=== PATIENT | male | born 2005 | race Caucasian/White ===

== ENCOUNTER 2024-03-21 17:23 | Emergency (ER) | payer OTHER, SELFPAY ==
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
[2024-03-21 17:28] VITALS: BP 132/72; PULSE 77; RESP 16; TEMP 36.9; O2SAT 98
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
--- NOTE | 2024-03-21 19:01 | PC.NURSE ---
assumed care. report received from Ronen BAEZ
--- NOTE | 2024-03-21 19:05 | PC.NURSE ---
patient is resting on stretcher. c collar is in place. call light in place. denies any needs
--- NOTE | 2024-03-21 19:22 | PC.NURSE ---
1899 report to delvin regan
[2024-03-21 19:23] VITALS: BP 130/70; PULSE 72; RESP 18; O2SAT 100
== END 2024-03-21 19:23 | disposition home or self-care (01) ==
PROVIDERS: Emergency Provider Emergency Medicine
DX: M25.561 Pain in right knee (principal); M25.512 Pain in left shoulder; M54.2 Cervicalgia; V59.88XA Occupant (driver) (passenger) of pick-up truck or van injured in other specified transport accidents, initial encounter
CPT/HCPCS: 72125; 73030; 73562; 99284; L0150

== ENCOUNTER 2024-07-13 16:20 | Outpatient (CLI) | payer OTHER, SELFPAY ==
[2024-07-13 17:26] LABS: HIV 1 P24 AG Negative (Negative); HIV 1/2 AB Negative (Negative)
[2024-07-14 08:34] LABS: Chlamydia trachomatis NOT DETECTED (NOT DETECTE); Neisseria gonorrhoeae PCR NOT DETECTED (NOT DETECTE)
[2024-07-15 07:28] LABS: Hepatitis C Virus Antibody NON-REACTIVE (NON-REACTIVE)
[2024-07-15 11:19] LABS: RPR Screen NON-REACTIVE (NON-REACTIVE)
== END 2024-07-13 16:21 | disposition home or self-care (01) ==
PROVIDERS: PCP Nurse Practitioner Family; Visit Provider Nurse Practitioner Family
DX: Z11.3 Encounter for screening for infections with a predominantly sexual mode of transmission (principal)
CPT/HCPCS: 36415; 86592; 86695; 86696; 86803; 87491; 87591; 87806

== ENCOUNTER 2025-07-27 11:45 | Emergency (ER) | payer OTHER, SELFPAY ==
[2025-07-27 11:48] VITALS: BP 129/76; PULSE 59; RESP 14; TEMP 37; O2SAT 99
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
[2025-07-27 12:36] LABS: Influenza A QL RT-PCR Negative (Negative); Influenza B QL RT-PCR Negative (Negative); RSV RNA, RT-PCR Negative (Negative); SARS-CoV-2 RNA PCR Negative (Negative)
[2025-07-27 13:08] VITALS: BP 122/72; PULSE 62; RESP 14; O2SAT 100
== END 2025-07-27 13:10 | disposition home or self-care (01) ==
PROVIDERS: Emergency Provider Emergency Medicine; PCP Nurse Practitioner Family
DX: A08.4 Viral intestinal infection, unspecified (principal); F17.290 Nicotine dependence, other tobacco product, uncomplicated; Z20.822 Contact with and (suspected) exposure to COVID-19
CPT/HCPCS: 87637; 99283